=== PATIENT | female | born 1940 | race Caucasian/White ===

== ENCOUNTER 2016-12-18 12:44 | Emergency (ER) | payer MEDICARE, BC ==
[2016-12-18 12:59] VITALS: BP 133/75
[2016-12-18] MEDS ORDERED: Albuterol/Ipratropium 3.0-0.5 MG/3 ML Neb Soln NEB ONE (13:56)
--- NOTE | 2016-12-18 13:59 | EDM.PDOC ---
ED HPI GENERAL MEDICAL PROBLEM - General Chief Complaint: Chest Pain Stated Complaint: CHEST PAIN Time Seen by Provider: 12/18/16 13:09 Source of Information: Reports: Patient, Family (), RN Notes Reviewed History Limitations: Reports: No Limitations - History of Present Illness INITIAL COMMENTS - FREE TEXT/NARRATIVE: The patient has stage IV endometrial cancer, on chemotherapy only, with her last dose about 2 months ago. Medical records were obtained from [facility]. The patient was admitted on with abdominal discomfort, dyspnea on exertion, and nausea. She was found to have new atrial fibrillation and a mildly elevated troponin, with a non -ischemic ECG. CT of the abdomen and pelvis found some loculated ascites. Serial troponins were elevated, and Cardiology was consulted. A CT of the chest was performed which ruled out a PE. A cardiac PET scan was abnormal. Cardiology felt that the elevated troponin was not due to a cardiac event. Cardiology started the patient on heparin, followed by Lovenox, and her Toprol-XL was increased from 25 mg daily to 50 mg daily. She was also started on atorvastatin. During her hospitalization, she had occasional episodes of ventricular tachycardia, attributed to electrolyte imbalance. She was given IV magnesium. She underwent paracentesis; cytology showed metastatic adenocarcinoma. She was discharged home on 12/16/2016 on Lovenox, to start on oral Coumadin on . She is to continue the Lovenox until 12/21/2016. The patient now presents to the ED complaining of left-sided chest pain and wheezing since last night. The chest pain is sharp in character. It is pleuritic ; she has no pain if she remains still. She reports some dyspnea on exertion since last night, but no dyspnea at rest. She noticed a fast heartbeat this morning. She had some nausea this morning. She has had diaphoresis per the fast several days, however, attributes this to her chemotherapy. No recent sense of impending doom. No prior similar symptoms. Chest Pain Score (Numeric/FACES): 0 - Related Data Allergies Allergy/AdvReac Type Severity Reaction Status Date / Time No Known Allergies Allergy Verified 12/18/16 12:53 Home Meds: Home Meds Aspirin [Halfprin] 1 tab PO DAILY 04/30/14 [History] Metoprolol Succinate [Toprol XL] 50 tab PO DAILY 04/30/14 [History] Triamterene/Hydrochlorothiazid [Triamterene-HCTZ 37.5-25 MG] 0.5 tab PO DAILY PRN 04/30/14 [History] Ipratropium/Albuterol Sulfate [Combivent Respimat Inhal Gar[place]] 2 inhalation IH Q4H PRN #1 inhaler 12/18/16 [Rx] Lovenox. 12/18/16 [History] Ranitidine [Zantac] 150 mg PO BID 12/18/16 [History] Warfarin [Coumadin] 5 mg PO DAILY 12/18/16 [History] atorvaSTATin [Lipitor] 20 mg PO BEDTIME 12/18/16 [History] glipiZIDE [Glucotrol] 5 mg PO DAILY 12/18/16 [History] oxyCODONE HCl/Acetaminophen [oxyCODONE-Acetaminophen 5-325] 1 tab PO Q4H PRN [History] Past Medical History Cardiovascular History: Reports: Afib, High Cholesterol, Hypertension Gastrointestinal History: Reports: GERD Genitourinary History: Reports: Urinary Incontinence Musculoskeletal History: Reports: Arthritis, Gout (suspected), Osteoporosis Endocrine/Metabolic History: Reports: Diabetes, Type II, Obesity/BMI 30+ Oncologic (Cancer) History: Reports: Uterine (Stage IV) - Past Surgical History HEENT Surgical History: Reports: Cataract Surgery GI Surgical History: Reports: Appendectomy, Cholecystectomy Female Surgical History: Reports: Section (x 3), Hysterectomy, Salpingo-Oophorectomy Social & Family History - Tobacco Use Smoking Status *Q: Never Smoker - Alcohol Use Alcohol Use History: Yes Alcohol Use Frequency: Socially - Recreational Drug Use Recreational Drug Use: No - Living Situation & Occupation Living situation: Reports: , with Spouse Occupation: Retired ED ROS GENERAL - Review of Systems Review Of Systems: See Below Constitutional: Reports: Diaphoresis HEENT: Reports: No Symptoms Respiratory: Reports: Wheezing, Pleuritic Chest Pain. Denies: Shortness of Breath Cardiovascular: Reports: Dyspnea on Exertion, Palpitations Endocrine: Reports: No Symptoms GI/Abdominal: Reports: Nausea : Reports: No Symptoms Musculoskeletal: Reports: No Symptoms Skin: Reports: No Symptoms Neurological: Reports: No Symptoms Psychiatric: Reports: No Symptoms Hematologic/Lymphatic: Reports: No Symptoms Immunologic: Reports: No Symptoms ED EXAM, GENERAL - Physical Exam Exam: See Below Exam Limited By: No Limitations General Appearance: Alert, WD/WN, No Apparent Distress Eye Exam: Bilateral Eye: Normal Inspection Ears: Normal External Exam, Hearing Grossly Normal Nose: Normal Inspection, No Blood Throat/Mouth: Normal Inspection, Normal Lips, Normal Voice, No Airway Compromise Head: Atraumatic, Normocephalic, Other (Alopecia) Neck: Normal Inspection, Full Range of Motion Respiratory/Chest: No Respiratory Distress, No Accessory Muscle Use, Decreased Breath Sounds (bilateral), Wheezing, Prolonged Expiration (mild). No: Crackles , Rhonchi Cardiovascular: Normal Peripheral Pulses, Regular Rate, Rhythm, No Gallop, No JVD, No Murmur, No Rub GI/Abdominal: Normal Bowel Sounds, Soft, Non-Tender, No Organomegaly, No Distention, No Abnormal Bruit, No Mass, Other (Obese) (Female) Exam: Deferred Rectal (Female) Exam: Deferred Back Exam: Normal Inspection, Full Range of Motion, NT Extremities: Normal Inspection, Normal Range of Motion, No Pedal Edema, Normal Capillary Refill Neurological: Alert, Oriented, Normal Cognition, No Motor/Sensory Deficits Psychiatric: Normal Affect Skin Exam: Warm, Dry, Intact, Normal Color, No Rash Lymphatic: No Adenopathy EKG INTERPRETATION EKG Date: 12/18/16 Time: 12:55 Rhythm: NSR Rate (Beats/Min): 89 Hamill: Normal P-Wave: Present QRS: Normal ST-T: Normal QT: Normal Comparison: Change From Previous EKG (Low voltage is new from 08/29/2016) EKG Interpretation Comments: 2 PAC's noted. Low voltage. Course - Vital Signs Last Recorded V/S: Last Vital Signs Temp 35.6 C 12/18/16 12:53 Pulse 114 H 12/18/16 12:53 Resp 22 H 12/18/16 12:53 BP 133/75 12/18/16 12:53 Pulse Ox 95 12/18/16 13:59 - Orders/Labs/Meds Orders: Active Orders 24 hr Category Date Time Status EKG Documentation Completion [RC] STAT Care 12/18/16 13:22 Active RT Aerosol Therapy [RC] ASDIRECTED Care 12/18/16 13:56 Active Chest 2V [CR] Stat Exams 12/18/16 13:22 Taken Magnesium Sulfate/Water [Magnesium Sulfate 2 GM in Med 12/18/16 14:35 Active Water 50 ML] 2 gm Premix Bag 1 bag IV ONETIME Medication Orders Magnesium Sulfate 2 gm/ Premix 50 mls @ 50 mls/hr IV ONETIME ONE Stop: 12/18/16 15:34 Last Admin: 12/18/16 15:03 Dose: 50 mls/hr Labs: Laboratory Tests 12/18/16 12/18/16 12/18/16 Range/Units 13:22 13:25 13:25 WBC 7.73 (3.98-10.04) K/mm3 RBC 3.57 L (3.98-5.22) M/mm3 Hgb 11.4 (11.2-15.7) gm/L Hct 35.1 (34.1-44.9) % MCV 98.3 H (79.4-94.8) fl MCH 31.9 (25.6-32.2) pg MCHC 32.5 (32.2-35.5) g/dl RDW Std Deviation 45.6 (36.4-46.3) fL Plt Count 326 (182-369) K/mm3 MPV 8.6 L (9.4-12.3) fl Neutrophils % (Manual) 75 H (40-60) % Band Neutrophils % 1 (0-10) % Lymphocytes % (Manual) 15 L (20-40) % Atypical Lymphs % 0 % Monocytes % (Manual) 5 (2-10) % Eosinophils % (Manual) 4 (0.7-5.8) % Basophils % (Manual) 0 L (0.1-1.2) Platelet Estimate Adequate RBC Morph Comment Normal PT 12.0 (8.0-13.0) SECONDS INR 1.09 APTT 39 H (22-36) SECONDS D-Dimer, Quantitative 1.36 H (0.19-0.59) mg/L Puncture Site Rt radial ABG pH 7.47 H (7.35-7.45) ABG pCO2 31.9 L (35.0-45.0) mmHg ABG pO2 54.0 L (80.0-100.0) mmHg ABG HCO3 22.6 (22.0-26.0) meq/L ABG O2 Saturation 86.5 L (96.0-97.0) % ABG Base Excess -0.1 (-2-2.0) Asaf Test Positive A-a Gradient 40 mmHg O2 Delivery Device Room air FiO2 21.00 (21.00-100.00) % Sodium (136-145) mEq/L Potassium (3.5-5.1) mEq/L Chloride (98-107) mEq/L Carbon Dioxide (21-32) mEq/L Anion Gap (5-15) BUN (7-18) mg/dL Creatinine (0.55-1.02) mg/dL Est Cr Clr Drug Dosing mL/min Estimated GFR (MDRD) (>60) mL/min BUN/Creatinine Ratio (14-18) Glucose (83-115) mg/dL Lactic Acid (0.4-2.0) mmol/L Calcium (8.5-10.1) mg/dL Magnesium (1.8-2.4) mg/dl Total Bilirubin (0.2-1.0) mg/dL AST (15-37) U/L ALT (14-59) U/L Alkaline Phosphatase (46-116) U/L Troponin I (0.00-0.056) ng/mL B-Natriuretic Peptide (0-100) pg/mL Total Protein (6.4-8.2) g/dl Albumin (3.4-5.0) g/dl Globulin gm/dL Albumin/Globulin Ratio (1-2) 12/18/16 12/18/16 12/18/16 Range/Units 13:25 13:25 13:36 WBC (3.98-10.04) K/mm3 RBC (3.98-5.22) M/mm3 Hgb (11.2-15.7) gm/L Hct (34.1-44.9) % MCV (79.4-94.8) fl MCH (25.6-32.2) pg MCHC (32.2-35.5) g/dl RDW Std Deviation (36.4-46.3) fL Plt Count (182-369) K/mm3 MPV (9.4-12.3) fl Neutrophils % (Manual) (40-60) % Band Neutrophils % (0-10) % Lymphocytes % (Manual) (20-40) % Atypical Lymphs % % Monocytes % (Manual) (2-10) % Eosinophils % (Manual) (0.7-5.8) % Basophils % (Manual) (0.1-1.2) Platelet Estimate RBC Morph Comment PT (8.0-13.0) SECONDS INR APTT (22-36) SECONDS D-Dimer, Quantitative (0.19-0.59) mg/L Puncture Site ABG pH (7.35-7.45) ABG pCO2 (35.0-45.0) mmHg ABG pO2 (80.0-100.0) mmHg ABG HCO3 (22.0-26.0) meq/L ABG O2 Saturation (96.0-97.0) % ABG Base Excess (-2-2.0) Asaf Test A-a Gradient mmHg O2 Delivery Device FiO2 (21.00-100.00) % Sodium 142 (136-145) mEq/L Potassium 3.9 (3.5-5.1) mEq/L Chloride 105 (98-107) mEq/L Carbon Dioxide 25 (21-32) mEq/L Anion Gap 15.9 H (5-15) BUN 15 (7-18) mg/dL Creatinine 1.1 H (0.55-1.02) mg/dL Est Cr Clr Drug Dosing 37.57 mL/min Estimated GFR (MDRD) 48 (>60) mL/min BUN/Creatinine Ratio 13.6 L (14-18) Glucose 132 H (83-115) mg/dL Lactic Acid (0.4-2.0) mmol/L Calcium 9.0 (8.5-10.1) mg/dL Magnesium 1.2 L (1.8-2.4) mg/dl Total Bilirubin 0.4 (0.2-1.0) mg/dL AST 24 (15-37) U/L ALT 33 (14-59) U/L Alkaline Phosphatase 69 (46-116) U/L Troponin I 0.292 H* (0.00-0.056) ng/mL B-Natriuretic Peptide 1615 H (0-100) pg/mL Total Protein 6.7 (6.4-8.2) g/dl Albumin 2.8 L (3.4-5.0) g/dl Globulin 3.9 gm/dL Albumin/Globulin Ratio 0.7 L (1-2) /24/17 Range/Units 13:47 WBC (3.98-10.04) K/mm3 RBC (3.98-5.22) M/mm3 Hgb (11.2-15.7) gm/L Hct (34.1-44.9) % MCV (79.4-94.8) fl MCH (25.6-32.2) pg MCHC (32.2-35.5) g/dl RDW Std Deviation (36.4-46.3) fL Plt Count (182-369) K/mm3 MPV (9.4-12.3) fl Neutrophils % (Manual) (40-60) % Band Neutrophils % (0-10) % Lymphocytes % (Manual) (20-40) % Atypical Lymphs % % Monocytes % (Manual) (2-10) % Eosinophils % (Manual) (0.7-5.8) % Basophils % (Manual) (0.1-1.2) Platelet Estimate RBC Morph Comment PT (8.0-13.0) SECONDS INR APTT (22-36) SECONDS D-Dimer, Quantitative (0.19-0.59) mg/L Puncture Site ABG pH (7.35-7.45) ABG pCO2 (35.0-45.0) mmHg ABG pO2 (80.0-100.0) mmHg ABG HCO3 (22.0-26.0) meq/L ABG O2 Saturation (96.0-97.0) % ABG Base Excess (-2-2.0) Asaf Test A-a Gradient mmHg O2 Delivery Device FiO2 (21.00-100.00) % Sodium (136-145) mEq/L Potassium (3.5-5.1) mEq/L Chloride (98-107) mEq/L Carbon Dioxide (21-32) mEq/L Anion Gap (5-15) BUN (7-18) mg/dL Creatinine (0.55-1.02) mg/dL Est Cr Clr Drug Dosing mL/min Estimated GFR (MDRD) (>60) mL/min BUN/Creatinine Ratio (14-18) Glucose (83-115) mg/dL Lactic Acid 1.4 (0.4-2.0) mmol/L Calcium (8.5-10.1) mg/dL Magnesium (1.8-2.4) mg/dl Total Bilirubin (0.2-1.0) mg/dL AST (15-37) U/L ALT (14-59) U/L Alkaline Phosphatase (46-116) U/L Troponin I (0.00-0.056) ng/mL B-Natriuretic Peptide (0-100) pg/mL Total Protein (6.4-8.2) g/dl Albumin (3.4-5.0) g/dl Globulin gm/dL Albumin/Globulin Ratio (1-2) Meds: Medications Generic Name Dose Route Start Last Admin Trade Name Freq PRN Reason Stop Dose Admin Magnesium Sulfate 2 gm/ Premix 50 mls @ 50 mls/hr 12/18/16 14:35 12/18/16 15: 03 IV 12/18/16 15:34 50 mls/hr ONETIME ONE Administration Discontinued Medications Generic Name Dose Route Start Last Admin Trade Name Freq PRN Reason Stop Dose Admin Albuterol/Ipratropium 3 ml 12/18/16 13:56 12/18/16 13:59 Duoneb 3.0-0.5 Mg/3 Ml NEB 12/18/16 13:57 3 ml ONETIME ONE Administration - Radiology Interpretation Free Text/Narrative:: Two-view chest radiograph appears to be grossly unremarkable. Cardiac silhouette is within normal limits. No pulmonary vascular congestion. There is a small pleural effusion in the posterior sulcus - I cannot say if it is on the left or the right. No focal infiltrate. No pneumothorax. Right Port-A- Cath noted. Formal read per the Radiologist pending. - Re-Assessments/Exams Free Text/Narrative Re-Assessment/Exam: 12/18/16 13:58 The ABG represents an acute respiratory alkalosis and hypoxemia. 12/18/16 15:31 Test results discussed with the patient and her . Today's workup has abnormalities, but all are consistent with the findings at [facility], including an a mildly elevated troponin, which the Safety Scientist at [facility] apparently felt was related to cardiac metastases, not an acute coronary event. Similarly, the patient's D-dimer is modestly elevated at 1.36, however, an earlier PE study was negative, and the patient has been anticoagulated since. The patient's BNP is elevated at 1615, however, her chest radiograph does not show cardiomegaly or pulmonary vascular congestion. The patient's magnesium was found to be depressed at 1.2 - she was given a 2 g Mg rider. The patient states that she feels better after receiving a DuoNeb, and on repeat examination, she no longer has wheezes on auscultation. 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 I will discharge her home with a prescription for Combivent. She can then follow- up with her PCP and Oncologist. Departure - Departure Time of Disposition: 15:35 Disposition: Home, Self-Care 01 Condition: Fair Clinical Impression: Pleuritic chest pain, Stage IV adenocarcinoma of endometrium, Elevated troponin , Elevated d-dimer, Elevated brain natriuretic peptide (BNP) level - Discharge Information Prescriptions: Ipratropium/Albuterol Sulfate [Combivent Respimat Inhal [place]] 2 inhalation IH Q4H PRN #1 inhaler PRN Reason: Wheezing Forms: ED Department Discharge Additional Instructions: You were seen in the emergency room for left-sided chest pain with breathing, along with a fast heartbeat and nausea this morning. Workup in the ER included blood work, an ABG, an ECG, and a chest x-ray. Your workup found some abnormalities, but none significantly different from when you were admitted to [facility]. You have been prescribed a Combivent inhaler. Hold it about 1/2 to 1 inch from your mouth, start breathing, then actuate it. Repeat up to every 4 hours, as needed for shortness of breath or wheezing. Follow-up with your PCP, Graciela Reeves, and your Oncologist, Dr. Reynolds, as needed. If any other problems, please do not hesitate to return to the ER. - My Orders Last 24 Hours: My Active Orders 12/18/16 13:22 EKG Documentation Completion [RC] STAT Chest 2V [CR] Stat 12/18/16 13:56 RT Aerosol Therapy [RC] ASDIRECTED 12/18/16 14:35 Magnesium Sulfate/Water [Magnesium Sulfate 2 GM in Water 50 ML] 2 gm Premix Bag 1 bag IV ONETIME - Assessment/Plan Last 24 Hours: My Active Orders 12/18/16 13:22 EKG Documentation Completion [RC] STAT Chest 2V [CR] Stat 12/18/16 13:56 RT Aerosol Therapy [RC] ASDIRECTED 12/18/16 14:35 Magnesium Sulfate/Water [Magnesium Sulfate 2 GM in Water 50 ML] 2 gm Premix Bag 1 bag IV ONETIME
[2016-12-18] MEDS ORDERED: Magnesium Sulfate/Water 2 GM in Premix Bag 1 BAG IV ONE (14:35)
--- NOTE | 2016-12-20 08:10 | CR ---
Chest: Two views of the chest were obtained. Comparison: No previous study. Heart size and mediastinum are within normal limits. Right sided infusion port is seen. Tip of the catheter lies within the superior vena cava. On the lateral view there is blunting of both costophrenic angles most likely due to small pleural effusions with adjacent atelectasis. Lungs otherwise are clear. Mild degenerative change is scattered within the spine with disc space narrowing and osteophytes. Impression: 1. Small bilateral pleural effusions with adjacent atelectasis. 2. Other incidental findings as described above. Diagnostic code #3
== END 2016-12-18 16:10 | disposition home or self-care (01) ==
LOC: JD.ED 12:44
DX: R07.81 Pleurodynia (principal); C54.1 Malignant neoplasm of endometrium; R06.00 Dyspnea, unspecified; R79.89 Other specified abnormal findings of blood chemistry; I48.91 Unspecified atrial fibrillation; I10 Essential (primary) hypertension; E78.00 Pure hypercholesterolemia, unspecified; K21.9 Gastro-esophageal reflux disease without esophagitis; E11.9 Type 2 diabetes mellitus without complications; E66.9 Obesity, unspecified; Z90.49 Acquired absence of other specified parts of digestive tract; Z79.82 Long term (current) use of aspirin; Z79.01 Long term (current) use of anticoagulants; Z98.890 Other specified postprocedural states; Z90.710 Acquired absence of both cervix and uterus; Z68.36 Body mass index [BMI] 36.0-36.9, adult; Z79.84 Long term (current) use of oral hypoglycemic drugs
CPT/HCPCS: 36415; 36569; 36600; 71020; 80053; 82803; 83605; 83735; 83880; 84484; 85025; 85379; 85610; 85730; 93005; 94664; 96365; 99285; J1642; 99284; J3475